=== PATIENT | male | born 1955 | race Caucasian/White ===

== ENCOUNTER 2018-12-12 23:14 | Emergency (ER) | payer MEDICAID, OTHER ==
[~2018-12-12] VITALS: Ht 177.8 cm; Wt 100.0 kg
[~2018-12-12 23:14] MED LIST: NO HOME MEDS
[2018-12-12 23:53] LABS: BASOPHILS # (AUTO) 0.1 X10'3 (0-0.2); BASOPHILS % (AUTO) 0.5 % (0-1); EOSINOPHILS # (AUTO) 0.4 X10'3 (0-0.9); EOSINOPHILS % (AUTO) 3.7 % (0-6); HEMATOCRIT 40.5 % (42.0-52.0); LYMPHOCYTES # (AUTO) 2.4 X10'3 (1.1-4.8); LYMPHOCYTES % (AUTO) 24.1 % (21-51); MEAN CORPUSCULAR HEMOGLOBIN 35.6 PG (27.0-31.0); MEAN CORPUSCULAR HGB CONC 34.5 g/dL (33.0-36.5); MEAN CORPUSCULAR VOLUME 103.2 FL (78-98); MEAN PLATELET VOLUME 8.7 FL (7.4-10.4); MONOCYTES # (AUTO) 1.2 X10'3 (0-0.9); MONOCYTES % (AUTO) 12.2 % (2-12); NEUTROPHILS % (AUTO) 59.5 % (42-75); PLATELET COUNT 214 X10'3 (140-440); RED BLOOD COUNT 3.92 X10'6 (4.70-6.10); RED CELL DISTRIBUTION WIDTH 13.5 % (11.5-14.5)
[2018-12-13 00:08] LABS: ALANINE AMINOTRANSFERASE 104 U/L (12-78); ALBUMIN 2.2 G/DL (3.4-5.0); ALKALINE PHOSPHATASE 92 IU/L (46-116); ANION GAP 7 (8-16); CALCIUM 8.4 MG/DL (8.5-10.1); CHLORIDE 103 MMOL/L (99-107); CREATININE 0.91 MG/DL (0.60-1.10); LIPASE 709 U/L (73-393); POTASSIUM 3.6 MMOL/L (3.5-5.1); SODIUM 135 MMOL/L (135-145); eGFR 84 ML/MIN
[2018-12-13 00:42] LABS: ALBUMIN/GLOBULIN RATIO 0.3 (1.1-1.5); BILIRUBIN,TOTAL 1.3 MG/DL (0.1-1.0); BLOOD UREA NITROGEN 16 MG/DL (7-18); BUN/CREATININE RATIO 17.6 (5.4-32.0); GLUCOSE 150 MG/DL (70-104); TOTAL PROTEIN 9.2 G/DL (6.4-8.2)
[2018-12-13 00:43] LABS: ASPARTATE AMINO TRANSFERASE 139 U/L (10-37)
[2018-12-13] MEDS ORDERED: albumin (human) 25% 100 ML IV solution IV ONE (04:40)
[2018-12-13] MEDS ORDERED: LIDOcaine 1% w/epiNEPHrine 1:200,000 30ml vial IM ONE (05:05)
[2018-12-13 05:08] VITALS: BP 108/75
[2018-12-13 06:56] LABS: GLUCOSE,BODY FLUID 163 MG/DL; TOTAL PROTEIN,BODY FLUID 2.9 G/DL
[2018-12-13 08:36] LABS: BASOPHILS,BODY FLUID 1 %; BF RBC COUNT 30075 /CU MM; BF WBC COUNT 500 /CU MM (0-1000); BFAPPEAR CLOUDY; BFCOLOR RED; BFVOLUME 55 ML; LYMPHOCYTES,BODY FLUID 69 %; MONOCYTES,BODY FLUID 2 %; NEUTROPHILS,BODY FLUID 28 %
[2018-12-13 08:37] LABS: BODY FLUID PH (NON-PLEURAL) 7.5
== END 2018-12-13 06:44 | disposition home or self-care (01) ==
LOC: ER 23:14
DX: R18.8 Other ascites (principal); K74.69 Other cirrhosis of liver; E11.9 Type 2 diabetes mellitus without complications
CPT/HCPCS: 36415; 49083; 80053; 82945; 83690; 83986; 84157; 85025; 85610; 87070; 89051; 96374; 99285; P9047; 96365

== ENCOUNTER 2018-12-17 07:06 | Day surgery (SDC) | payer MEDICAID ==
[~2018-12-17] VITALS: Ht 177.8 cm; Wt 96.9 kg
[2018-12-17] VITALS (11 sets, daily range): BP systolic 90–113; BP diastolic 45–79
[2018-12-17] MEDS ORDERED: METF500T PO (07:31)
[2018-12-17] MEDS ORDERED: normal saline 1000ml 1,000 ML IV PRN (07:40)
[2018-12-17] MEDS ORDERED: albumin 25% 100mL bottle x 1 IV PRN (07:40)
== END 2018-12-17 10:47 | disposition home or self-care (01) ==
LOC: SSTAY O 07:06
PROVIDERS: ATTEND Radiology Vascular & Interventional Radiology
DX: R18.8 Other ascites (principal); K74.69 Other cirrhosis of liver; E11.9 Type 2 diabetes mellitus without complications; Z79.84 Long term (current) use of oral hypoglycemic drugs
CPT/HCPCS: 49083; C1729; J7030; P9047

== ENCOUNTER 2018-12-19 06:41 | Day surgery (SDC) | payer MEDICAID ==
[2018-12-19] VITALS (9 sets, daily range): BP systolic 99–121; BP diastolic 58–69
[~2018-12-19] VITALS: Ht 177.8 cm; Wt 90.6 kg
[~2018-12-19 06:41] MED LIST changes: +METF500T PO; -NO HOME MEDS
[2018-12-19] MEDS ORDERED: normal saline 1000ml 1,000 ML IV PRN (07:00)
[2018-12-19 07:44] LABS: BASOPHILS # (AUTO) 0.1 X10'3 (0-0.2); BASOPHILS % (AUTO) 0.7 % (0-1); EOSINOPHILS # (AUTO) 0.3 X10'3 (0-0.9); EOSINOPHILS % (AUTO) 3.5 % (0-6); HEMOGLOBIN 14.7 g/dl (14.0-17.9); LYMPHOCYTES # (AUTO) 1.4 X10'3 (1.1-4.8); LYMPHOCYTES % (AUTO) 16.6 % (21-51); MEAN CORPUSCULAR HGB CONC 35.1 g/dL (33.0-36.5); MEAN CORPUSCULAR VOLUME 102.5 FL (78-98); MEAN PLATELET VOLUME 8.7 FL (7.4-10.4); MONOCYTES # (AUTO) 1.1 X10'3 (0-0.9); MONOCYTES % (AUTO) 12.9 % (2-12); NEUTROPHILS # (AUTO) 5.4 X10'3 (1.8-7.7); NEUTROPHILS % (AUTO) 66.3 % (42-75); PLATELET COUNT 202 X10'3 (140-440); RED BLOOD COUNT 4.09 X10'6 (4.70-6.10); RED CELL DISTRIBUTION WIDTH 13.6 % (11.5-14.5); WHITE BLOOD COUNT 8.2 X10'3 (4.5-11.0)
[2018-12-19 08:04] LABS: ALBUMIN 2.3 G/DL (3.4-5.0); ANION GAP 5 (8-16); CALCIUM 8.3 MG/DL (8.5-10.1); CHLORIDE 102 MMOL/L (99-107); CREATININE 0.82 MG/DL (0.60-1.10); POTASSIUM 3.8 MMOL/L (3.5-5.1); SODIUM 134 MMOL/L (135-145); TOTAL CARBON DIOXIDE 27.3 MMOL/L (24-32); eGFR > 90 ML/MIN
[2018-12-19 08:06] LABS: BLOOD UREA NITROGEN 16 MG/DL (7-18); BUN/CREATININE RATIO 19.5 (5.4-32.0); GLUCOSE 191 MG/DL (70-104)
[2018-12-19] MEDS ORDERED: fentaNYL/PF 50MCG/1 ML 2ML syringe IV PRN (08:15)
[2018-12-19] MEDS ORDERED: LIDOcaine 1% (10mg/ml) 2ml vial SQ ONE (08:15)
[2018-12-19] MEDS ORDERED: midazolam 2 mg/2 ml injection IV PRN (08:15)
[2018-12-19] MEDS ORDERED: midazolam 2 mg/2 ml injection ONE (08:21)
[2018-12-19] MEDS ORDERED: LIDOcaine 1%/PF 5ML 10 MG/ML VIAL ONE (08:21)
[2018-12-19] MEDS ORDERED: heparin 1,000 UNITS/NS 500ml 500 ML ONE (08:22)
[2018-12-19] MEDS ORDERED: iohexol 300mg/ml 100ml inj. ONE (08:22)
[2018-12-19] MEDS ORDERED: fentaNYL/PF 50MCG/1 ML 2ML syringe ONE (08:22)
[2018-12-19] MEDS ORDERED: normal saline 1000ml 1,000 ML IV SCH (11:29)
== END 2018-12-19 12:20 | disposition home or self-care (01) ==
LOC: SSTAY O 06:41
PROVIDERS: ATTEND Radiology Vascular & Interventional Radiology
DX: K74.69 Other cirrhosis of liver (principal)
CPT/HCPCS: 36415; 37200; 75970; 76937; 80048; 85025; 85610; 99152; 99153; C1769; C1894; C2625; J1644; J2250; J3010; J7030; Q9967

== ENCOUNTER 2018-12-27 07:47 | Day surgery (SDC) | payer MEDICAID ==
[~2018-12-27] VITALS: Ht 177.8 cm; Wt 97.7 kg
[2018-12-27 08:00] VITALS: BP 135/76
[2018-12-27] MEDS ORDERED: normal saline 1000ml 1,000 ML IV PRN (08:10)
[2018-12-27 08:20] VITALS: BP 135/76
[2018-12-27 08:30] VITALS: BP 131/75
[2018-12-27 08:40] VITALS: BP 135/79
[2018-12-27] MEDS: albumin 25% 100mL bottle x 1 IV PRN ×2 (08:46→10:32)
[2018-12-27 08:50] VITALS: BP 107/71
[2018-12-27 10:00] VITALS: BP 101/66
== END 2018-12-27 11:02 | disposition home or self-care (01) ==
LOC: SSTAY O 07:47
PROVIDERS: ATTEND Radiology Diagnostic Radiology
DX: R18.8 Other ascites (principal); E11.9 Type 2 diabetes mellitus without complications; Z79.84 Long term (current) use of oral hypoglycemic drugs
CPT/HCPCS: 49083; C1729; J7030; P9047

== ENCOUNTER 2019-01-07 07:55 | Day surgery (SDC) | payer MEDICAID ==
[2019-01-07] VITALS (7 sets, daily range): BP systolic 107–121; BP diastolic 60–82
[~2019-01-07] VITALS: Ht 177.8 cm; Wt 96.0 kg
[2019-01-07] MEDS ORDERED: NAPR220T67 PO (08:24)
[2019-01-07] MEDS ORDERED: normal saline 1000ml 1,000 ML IV PRN (08:30)
[2019-01-07] MEDS: albumin 25% 100mL bottle x 1 IV PRN ×2 (09:03→09:26)
== END 2019-01-07 10:05 | disposition home or self-care (01) ==
LOC: SSTAY O 07:55
PROVIDERS: ATTEND Radiology Diagnostic Radiology
DX: R18.8 Other ascites (principal); E11.9 Type 2 diabetes mellitus without complications; K74.60 Unspecified cirrhosis of liver; Z79.84 Long term (current) use of oral hypoglycemic drugs
CPT/HCPCS: 49083; C1729; J7030; P9047

== ENCOUNTER 2019-01-14 08:31 | Day surgery (SDC) | payer MEDICAID ==
[~2019-01-14] VITALS: Ht 175.3 cm; Wt 94.3 kg
[~2019-01-14 08:31] MED LIST changes: +NAPR220T67 PO
[2019-01-14] MEDS ORDERED: albumin 25% 100mL bottle x 1 IV PRN (08:50)
[2019-01-14] MEDS ORDERED: normal saline 1000ml 1,000 ML IV PRN (08:50)
[2019-01-14 09:05] VITALS: BP 109/71
[2019-01-14 09:45] VITALS: BP 106/63
[2019-01-14 10:00] VITALS: BP 103/70
[2019-01-14 10:15] VITALS: BP 89/67
[2019-01-14 10:30] VITALS: BP 74/48
[2019-01-14 10:45] VITALS: BP 95/54
== END 2019-01-14 11:45 | disposition home or self-care (01) ==
LOC: SSTAY O 08:31
PROVIDERS: ATTEND Radiology Vascular & Interventional Radiology
DX: R18.8 Other ascites (principal)
CPT/HCPCS: 49083; C1729; J7030; P9047

== ENCOUNTER 2019-01-24 08:09 | Day surgery (SDC) | payer MEDICAID ==
[~2019-01-24] VITALS: Ht 177.8 cm; Wt 100.2 kg
[2019-01-24] VITALS (12 sets, daily range): BP systolic 91–128; BP diastolic 44–90
[2019-01-24] MEDS ORDERED: normal saline 1000ml 1,000 ML IV PRN (08:20)
[2019-01-24] MEDS ORDERED: SPIR25TA5 PO (08:29)
[2019-01-24] MEDS: albumin 25% 100mL bottle x 1 IV PRN ×2 (10:51→10:52)
== END 2019-01-24 12:05 | disposition home or self-care (01) ==
LOC: SSTAY O 08:09
PROVIDERS: ATTEND Radiology Vascular & Interventional Radiology
DX: R18.8 Other ascites (principal); K74.60 Unspecified cirrhosis of liver
CPT/HCPCS: 49083; C1729; J7030; P9047

== ENCOUNTER → 2019-01-31 | Day surgery (SDC) | payer MEDICAID ==
[~2019-01-31] VITALS: Ht 177.8 cm; Wt 96.7 kg
[~2019-01-31] MED LIST changes: +DAPA1TAB4; +SPIR25TA5 PO; +albumin 25% 100mL bottle x 1 IV PRN
[2019-01-31 08:12] VITALS: BP 110/78
[2019-01-31 08:30] VITALS: BP 121/78
[2019-01-31 08:45] VITALS: BP 119/79
[2019-01-31 09:00] VITALS: BP 116/72
[2019-01-31 09:15] VITALS: BP 106/65
[2019-01-31 09:30] VITALS: BP 110/65
== END | disposition home or self-care (01) ==
LOC: SSTAY O 07:30
PROVIDERS: ATTEND Radiology Diagnostic Radiology
DX: R18.8 Other ascites (principal); K74.60 Unspecified cirrhosis of liver; E11.9 Type 2 diabetes mellitus without complications; Z79.84 Long term (current) use of oral hypoglycemic drugs; Z79.899 Other long term (current) drug therapy
CPT/HCPCS: 49083; C1729; P9047

== ENCOUNTER 2019-02-07 06:54 | Day surgery (SDC) | payer MEDICAID ==
[2019-02-07] VITALS (7 sets, daily range): BP systolic 103–120; BP diastolic 68–82
[~2019-02-07] VITALS: Ht 177.8 cm; Wt 95.6 kg
[~2019-02-07 06:54] MED LIST changes: -DAPA1TAB4; -albumin 25% 100mL bottle x 1 IV PRN
[2019-02-07] MEDS ORDERED: LIDOcaine 1% 30ml preserv. free vial SQ ONE (07:15)
[2019-02-07] MEDS ORDERED: albumin 25% 100mL bottle x 1 IV PRN (07:20)
[2019-02-07] MEDS ORDERED: normal saline 1000ml 1,000 ML IV PRN (07:20)
== END 2019-02-07 10:22 | disposition home or self-care (01) ==
LOC: SSTAY O 06:54
PROVIDERS: ATTEND Radiology Vascular & Interventional Radiology
DX: R18.8 Other ascites (principal); K74.69 Other cirrhosis of liver; E11.9 Type 2 diabetes mellitus without complications; Z79.84 Long term (current) use of oral hypoglycemic drugs
CPT/HCPCS: 49083; 82948; C1729; J7030; P9047

== ENCOUNTER 2019-02-14 07:06 | Day surgery (SDC) | payer MEDICAID ==
[~2019-02-14] VITALS: Ht 177.8 cm; Wt 99.2 kg
[2019-02-14] VITALS (8 sets, daily range): BP systolic 100–124; BP diastolic 62–82
[2019-02-14] MEDS ORDERED: normal saline 1000ml 1,000 ML IV PRN (07:20)
[2019-02-14] MEDS: albumin 25% 100mL bottle x 1 IV PRN ×2 (09:46→10:23)
== END 2019-02-14 11:10 | disposition home or self-care (01) ==
LOC: SSTAY O 07:06
PROVIDERS: ATTEND Radiology Diagnostic Radiology
DX: R18.8 Other ascites (principal); K74.60 Unspecified cirrhosis of liver; E11.9 Type 2 diabetes mellitus without complications; Z79.84 Long term (current) use of oral hypoglycemic drugs
CPT/HCPCS: 49083; C1729; J7030; P9047

== ENCOUNTER 2019-02-20 07:22 | Day surgery (SDC) | payer MEDICAID ==
[2019-02-20] VITALS (8 sets, daily range): BP systolic 96–134; BP diastolic 58–71
[~2019-02-20] VITALS: Ht 177.8 cm; Wt 97.3 kg
[2019-02-20] MEDS ORDERED: normal saline 1000ml 1,000 ML IV PRN (07:50)
[2019-02-20] MEDS: albumin 25% 100mL bottle x 1 IV PRN ×2 (09:01→09:23)
== END 2019-02-20 10:10 | disposition home or self-care (01) ==
LOC: SSTAY O 07:22
PROVIDERS: ATTEND Radiology Diagnostic Radiology
DX: R18.8 Other ascites (principal); E11.9 Type 2 diabetes mellitus without complications; K74.69 Other cirrhosis of liver; Z79.84 Long term (current) use of oral hypoglycemic drugs
CPT/HCPCS: 49083; 82948; C1729; J7030; P9047

== ENCOUNTER 2019-02-26 07:07 | Day surgery (SDC) | payer MEDICAID ==
[~2019-02-26] VITALS: Ht 177.8 cm; Wt 96.8 kg
[2019-02-26] VITALS (10 sets, daily range): BP systolic 102–137; BP diastolic 64–82
[2019-02-26] MEDS ORDERED: DAPA1TAB4 (07:33)
[2019-02-26] MEDS ORDERED: normal saline 1000ml 1,000 ML IV PRN (07:35)
[2019-02-26] MEDS: albumin 25% 100mL bottle x 1 IV PRN ×2 (09:07→09:11)
== END 2019-02-26 09:45 | disposition home or self-care (01) ==
LOC: SSTAY O 07:07
PROVIDERS: ATTEND Radiology Diagnostic Radiology
DX: R18.8 Other ascites (principal); K74.60 Unspecified cirrhosis of liver; E11.9 Type 2 diabetes mellitus without complications; Z79.84 Long term (current) use of oral hypoglycemic drugs; Z79.899 Other long term (current) drug therapy
CPT/HCPCS: 49083; C1729; J7030; P9047

== ENCOUNTER 2019-03-04 06:42 | Day surgery (SDC) | payer MEDICAID ==
[2019-03-04] VITALS (9 sets, daily range): BP systolic 94–137; BP diastolic 58–87
[~2019-03-04] VITALS: Ht 177.8 cm; Wt 98.6 kg
[~2019-03-04 06:42] MED LIST changes: +DAPA1TAB4; -METF500T PO
[2019-03-04] MEDS ORDERED: normal saline 1000ml 1,000 ML IV PRN (07:00)
[2019-03-04] MEDS: albumin 25% 100mL bottle x 1 IV PRN ×2 (09:23→09:53)
--- NOTE | 2019-03-04 12:23 | NUR ---
correction made on 0902 HR and 1000 HR. HR was not 16 as previously charted. HR corrected in intra and post chart notes.
== END 2019-03-04 10:40 | disposition home or self-care (01) ==
LOC: SSTAY O 06:42
PROVIDERS: ATTEND Radiology Diagnostic Radiology
DX: R18.8 Other ascites (principal)
CPT/HCPCS: 49083; C1729; J7030; P9047

== ENCOUNTER 2019-03-11 06:31 | Day surgery (SDC) | payer MEDICAID ==
[~2019-03-11] VITALS: Ht 177.8 cm; Wt 99.6 kg
[2019-03-11 06:44] VITALS: BP 119/76
[2019-03-11] MEDS ORDERED: normal saline 1000ml 1,000 ML IV PRN (06:55)
[2019-03-11 08:30] VITALS: BP 115/74
[2019-03-11] MEDS: albumin 25% 100mL bottle x 1 IV PRN ×2 (08:41→09:14)
[2019-03-11 08:45] VITALS: BP 102/59
[2019-03-11 09:00] VITALS: BP 115/63
[2019-03-11 09:15] VITALS: BP 103/66
[2019-03-11 09:30] VITALS: BP 98/64
== END 2019-03-11 09:30 | disposition home or self-care (01) ==
LOC: SSTAY O 06:31
PROVIDERS: ATTEND Radiology Diagnostic Radiology
DX: R18.8 Other ascites (principal); K74.69 Other cirrhosis of liver; E11.9 Type 2 diabetes mellitus without complications; Z79.84 Long term (current) use of oral hypoglycemic drugs
CPT/HCPCS: 49083; C1729; J7030; P9047

== ENCOUNTER 2019-03-17 06:43 | Day surgery (SDC) | payer MEDICAID ==
[2019-03-17] VITALS (9 sets, daily range): BP systolic 92–122; BP diastolic 61–84
[~2019-03-17] VITALS: Ht 177.8 cm; Wt 99.6 kg
[2019-03-17] MEDS ORDERED: normal saline 1000ml 1,000 ML IV PRN (07:15)
[2019-03-17] MEDS: albumin 25% 100mL bottle x 1 IV PRN ×3 (08:39→09:35)
== END 2019-03-17 10:20 | disposition home or self-care (01) ==
LOC: SSTAY O 06:43
PROVIDERS: ATTEND Radiology Diagnostic Radiology
DX: R18.8 Other ascites (principal); K74.60 Unspecified cirrhosis of liver; E11.9 Type 2 diabetes mellitus without complications; Z79.84 Long term (current) use of oral hypoglycemic drugs
CPT/HCPCS: 49083; C1729; J7030; P9047

== ENCOUNTER 2019-03-24 06:48 | Day surgery (SDC) | payer MEDICAID ==
[~2019-03-24] VITALS: Ht 177.8 cm; Wt 99.7 kg
[2019-03-24] VITALS (10 sets, daily range): BP systolic 92–117; BP diastolic 52–76
[~2019-03-24 06:48] MED LIST changes: -SPIR25TA5 PO
[2019-03-24] MEDS ORDERED: normal saline 1000ml 1,000 ML IV PRN (07:15)
[2019-03-24] MEDS ORDERED: AZAT50TA PO (08:38)
[2019-03-24] MEDS: albumin 25% 100mL bottle x 1 IV PRN ×3 (08:57→09:56)
== END 2019-03-24 10:45 | disposition home or self-care (01) ==
LOC: SSTAY O 06:48
PROVIDERS: ATTEND Radiology Vascular & Interventional Radiology
DX: R18.8 Other ascites (principal); K74.60 Unspecified cirrhosis of liver; E11.9 Type 2 diabetes mellitus without complications; Z79.84 Long term (current) use of oral hypoglycemic drugs
CPT/HCPCS: 49083; C1729; J7030; P9047

== ENCOUNTER 2019-03-29 12:49 | Emergency (ER) | payer MEDICAID ==
[~2019-03-29] VITALS: Ht 177.8 cm; Wt 98.0 kg
[~2019-03-29 12:49] MED LIST changes: +AZAT50TA PO; -NAPR220T67 PO
[2019-03-29 14:54] LABS: BASOPHILS # (AUTO) 0.1 X10'3 (0-0.2); BASOPHILS % (AUTO) 0.8 % (0-1); EOSINOPHILS # (AUTO) 0.3 X10'3 (0-0.9); EOSINOPHILS % (AUTO) 3.5 % (0-6); HEMATOCRIT 38.8 % (42.0-52.0); HEMOGLOBIN 13.6 g/dl (14.0-17.9); LYMPHOCYTES # (AUTO) 1.2 X10'3 (1.1-4.8); LYMPHOCYTES % (AUTO) 13.5 % (21-51); MEAN CORPUSCULAR HEMOGLOBIN 34.9 PG (27.0-31.0); MEAN CORPUSCULAR HGB CONC 35.1 g/dL (33.0-36.5); MEAN CORPUSCULAR VOLUME 99.4 FL (78-98); MEAN PLATELET VOLUME 7.8 FL (7.4-10.4); MONOCYTES # (AUTO) 1.1 X10'3 (0-0.9); MONOCYTES % (AUTO) 12.4 % (2-12); NEUTROPHILS # (AUTO) 6.3 X10'3 (1.8-7.7); NEUTROPHILS % (AUTO) 69.8 % (42-75); PLATELET COUNT 220 X10'3 (140-440); RED BLOOD COUNT 3.91 X10'6 (4.70-6.10); RED CELL DISTRIBUTION WIDTH 13.2 % (11.5-14.5)
[2019-03-29 15:09] LABS: PARTIAL THROMBOPLASTIN TIME 28 SECONDS (22-32)
[2019-03-29 15:11] LABS: ALANINE AMINOTRANSFERASE 36 U/L (12-78); ALBUMIN 2.4 G/DL (3.4-5.0); ALBUMIN/GLOBULIN RATIO 0.4 (1.1-1.5); ALKALINE PHOSPHATASE 102 IU/L (46-116); ANION GAP 4 (8-16); ASPARTATE AMINO TRANSFERASE 67 U/L (10-37); BILIRUBIN,TOTAL 0.8 MG/DL (0.1-1.0); BLOOD UREA NITROGEN 33 MG/DL (7-18); BUN/CREATININE RATIO 22.9 (5.4-32.0); CALCIUM 8.4 MG/DL (8.5-10.1); CHLORIDE 105 MMOL/L (99-107); CREATININE 1.44 MG/DL (0.60-1.10); GLUCOSE 182 MG/DL (70-104); POTASSIUM 4.5 MMOL/L (3.5-5.1); SODIUM 134 MMOL/L (135-145); TOTAL CARBON DIOXIDE 25.5 MMOL/L (24-32); TOTAL PROTEIN 8.6 G/DL (6.4-8.2); eGFR 49 ML/MIN
[2019-03-29] MEDS ORDERED: albumin (Human) 5% 250ml 250 ML IV ONE ×2 (15:45→16:20)
[2019-03-29 17:54] VITALS: BP 103/68
== END 2019-03-29 18:55 | disposition home or self-care (01) ==
LOC: ER 12:49
DX: R18.8 Other ascites (principal); E11.9 Type 2 diabetes mellitus without complications; Z79.899 Other long term (current) drug therapy
CPT/HCPCS: 36415; 49082; 80053; 85025; 85610; 85730; 99285; P9045

== ENCOUNTER 2019-04-01 07:22 | Day surgery (SDC) | payer MEDICAID ==
[~2019-04-01] VITALS: Ht 177.8 cm; Wt 93.5 kg
[2019-04-01] VITALS (8 sets, daily range): BP systolic 96–131; BP diastolic 28–84
[2019-04-01] MEDS ORDERED: normal saline 1000ml 1,000 ML IV PRN ×2 (07:50→10:35)
[2019-04-01] MEDS ORDERED: albumin 25% 100mL bottle x 1 IV PRN (10:35)
== END 2019-04-01 11:20 | disposition home or self-care (01) ==
LOC: SSTAY O 07:22
PROVIDERS: ATTEND Radiology Vascular & Interventional Radiology
DX: R18.8 Other ascites (principal); K74.60 Unspecified cirrhosis of liver; E11.9 Type 2 diabetes mellitus without complications; Z79.84 Long term (current) use of oral hypoglycemic drugs; Z98.890 Other specified postprocedural states
CPT/HCPCS: 49083; C1729; J7030; P9047

== ENCOUNTER 2019-04-09 07:41 | Day surgery (SDC) | payer MEDICAID ==
[~2019-04-09] VITALS: Ht 177.8 cm; Wt 97.4 kg
[2019-04-09] MEDS ORDERED: LACT10SO57 PO (08:03)
[2019-04-09] MEDS ORDERED: CIPR-20 PO (08:04)
[2019-04-09 08:06] VITALS: BP 102/66
[2019-04-09] MEDS ORDERED: albumin 25% 100mL bottle x 1 IV PRN (08:25)
[2019-04-09] MEDS ORDERED: normal saline 1000ml 1,000 ML IV PRN (08:25)
[2019-04-09 09:12] VITALS: BP 103/62
[2019-04-09 09:15] VITALS: BP 110/60
[2019-04-09 09:30] VITALS: BP 97/58
[2019-04-09 09:45] VITALS: BP 103/59
== END 2019-04-09 11:20 | disposition home or self-care (01) ==
LOC: SSTAY O 07:41
PROVIDERS: ATTEND Radiology Vascular & Interventional Radiology
DX: R18.8 Other ascites (principal); K74.69 Other cirrhosis of liver; E11.9 Type 2 diabetes mellitus without complications; Z79.899 Other long term (current) drug therapy; Z79.84 Long term (current) use of oral hypoglycemic drugs
CPT/HCPCS: 49083; C1729; J7030; P9047

== ENCOUNTER 2019-04-16 06:35 | Day surgery (SDC) | payer MEDICAID ==
[2019-04-16] VITALS (7 sets, daily range): BP systolic 90–103; BP diastolic 50–66
[~2019-04-16] VITALS: Ht 177.8 cm; Wt 101.0 kg
[~2019-04-16 06:35] MED LIST changes: -AZAT50TA PO; +CIPR-20 PO; +LACT10SO57 PO
[2019-04-16] MEDS ORDERED: CIPROFLOXACIN PO (06:50)
[2019-04-16] MEDS ORDERED: albumin 25% 100mL bottle x 1 IV PRN (06:50)
[2019-04-16] MEDS ORDERED: normal saline 1000ml 1,000 ML IV PRN (06:50)
== END 2019-04-16 09:40 | disposition home or self-care (01) ==
LOC: SSTAY O 06:35
PROVIDERS: ATTEND Radiology Diagnostic Radiology
DX: R18.8 Other ascites (principal); K74.60 Unspecified cirrhosis of liver; I25.10 Atherosclerotic heart disease of native coronary artery without angina pectoris; M19.90 Unspecified osteoarthritis, unspecified site; E11.22 Type 2 diabetes mellitus with diabetic chronic kidney disease; I12.0 Hypertensive chronic kidney disease with stage 5 chronic kidney disease or end stage renal disease; N18.6 End stage renal disease; Z79.899 Other long term (current) drug therapy; Z87.891 Personal history of nicotine dependence; Z79.84 Long term (current) use of oral hypoglycemic drugs; Z72.89 Other problems related to lifestyle; Z91.041 Radiographic dye allergy status; Z91.040 Latex allergy status; Z88.8 Allergy status to other drugs, medicaments and biological substances; Z82.49 Family history of ischemic heart disease and other diseases of the circulatory system
CPT/HCPCS: 49083; C1729; P9047

== ENCOUNTER 2019-04-25 07:23 | Day surgery (SDC) | payer MEDICAID ==
[2019-04-25] VITALS (7 sets, daily range): BP systolic 90–120; BP diastolic 55–72
[~2019-04-25] VITALS: Ht 177.8 cm; Wt 112.9 kg
[~2019-04-25 07:23] MED LIST changes: -CIPR-20 PO
[2019-04-25] MEDS ORDERED: albumin 25% 100mL bottle x 1 IV PRN (07:40)
[2019-04-25] MEDS ORDERED: normal saline 1000ml 1,000 ML IV PRN (07:45)
== END 2019-04-25 10:30 | disposition home or self-care (01) ==
LOC: SSTAY O 07:23
PROVIDERS: ATTEND Radiology Vascular & Interventional Radiology
DX: R18.8 Other ascites (principal); K74.60 Unspecified cirrhosis of liver; E11.9 Type 2 diabetes mellitus without complications; Z79.84 Long term (current) use of oral hypoglycemic drugs; Z79.899 Other long term (current) drug therapy
CPT/HCPCS: 49083; C1729; J7030; P9047

== ENCOUNTER 2019-05-05 17:48 | Emergency (ER) | payer MEDICAID ==
[~2019-05-05] VITALS: Ht 172.7 cm; Wt 80.0 kg
[2019-05-05 18:10] VITALS: BP 143/74
--- NOTE | 2019-05-05 18:17 | NUR ---
BS 130
== END 2019-05-05 19:43 | disposition left against medical advice (07) ==
LOC: ER 17:48
DX: R53.1 Weakness (principal); R10.9 Unspecified abdominal pain; R19.7 Diarrhea, unspecified; Z53.21 Procedure and treatment not carried out due to patient leaving prior to being seen by health care provider
CPT/HCPCS: 82948

== ENCOUNTER 2019-05-06 13:21 | Emergency (ER) | payer MEDICAID ==
[~2019-05-06] VITALS: Ht 172.7 cm; Wt 106.8 kg
[2019-05-06] MEDS ORDERED: normal saline 1000ML IV soln IVB ONE (15:40)
[2019-05-06 16:01] LABS: BASOPHILS % (AUTO) 0.7 % (0-1); EOSINOPHILS # (AUTO) 0.2 X10'3 (0-0.9); EOSINOPHILS % (AUTO) 2.9 % (0-6); HEMATOCRIT 34.7 % (42.0-52.0); HEMOGLOBIN 12.4 g/dl (14.0-17.9); LYMPHOCYTES % (AUTO) 18.3 % (21-51); MEAN CORPUSCULAR HEMOGLOBIN 34.9 PG (27.0-31.0); MEAN CORPUSCULAR HGB CONC 35.6 g/dL (33.0-36.5); MEAN PLATELET VOLUME 7.7 FL (7.4-10.4); MONOCYTES # (AUTO) 0.7 X10'3 (0-0.9); NEUTROPHILS # (AUTO) 3.5 X10'3 (1.8-7.7); NEUTROPHILS % (AUTO) 65.1 % (42-75); PLATELET COUNT 175 X10'3 (140-440); RED BLOOD COUNT 3.55 X10'6 (4.70-6.10); RED CELL DISTRIBUTION WIDTH 14.4 % (11.5-14.5); WHITE BLOOD COUNT 5.4 X10'3 (4.5-11.0)
[2019-05-06 16:20] LABS: ALANINE AMINOTRANSFERASE 32 U/L (12-78); ALBUMIN 2.1 G/DL (3.4-5.0); ALKALINE PHOSPHATASE 82 IU/L (46-116); ANION GAP 7 (8-16); CALCIUM 8.2 MG/DL (8.5-10.1); CHLORIDE 109 MMOL/L (99-107); CREATININE 1.16 MG/DL (0.60-1.10); POTASSIUM 3.6 MMOL/L (3.5-5.1); SODIUM 139 MMOL/L (135-145); TOTAL CARBON DIOXIDE 22.6 MMOL/L (24-32); eGFR 63 ML/MIN
[2019-05-06 16:21] LABS: ALBUMIN/GLOBULIN RATIO 0.3 (1.1-1.5); ASPARTATE AMINO TRANSFERASE 66 U/L (10-37); BILIRUBIN,TOTAL 1.5 MG/DL (0.1-1.0); BLOOD UREA NITROGEN 21 MG/DL (7-18); BUN/CREATININE RATIO 18.1 (5.4-32.0); GLUCOSE 120 MG/DL (70-104); TOTAL PROTEIN 8.4 G/DL (6.4-8.2)
[2019-05-06 16:23] LABS: LACTIC SEPSIS 1.9 MMOL/L (0.4-2.0)
[2019-05-06] MEDS ORDERED: lactulose 20gm/30ml cup PO ONE (16:50)
[2019-05-06 16:59] LABS: CLARITY,URINE SLIGHTLY CLOUDY (Clear); COLOR,URINE YELLOW (Yellow); GLUCOSE, URINE 500 mg/dl (Neg); KETONES,URINE TRACE mg/dl (Neg); LEUKOCYTE ESTERASE ,URINE NEGATIVE (Neg); NITRITES, URINE NEGATIVE (Neg); OCCULT BLOOD,URINE NEGATIVE (Neg); PH,URINE 5.5 (4.8-8.0); PROTEIN,URINE NEGATIVE (Neg); UA COLLECTION TYPE URINAL; UROBILINOGEN,URINE 0.2 E.U/dL (0.2-1.0)
[2019-05-06 17:04] LABS: MUCUS STRANDS MANY /LPF (Neg); SQUAMOUS EPITHELIAL CELL,UR MANY /LPF (FEW)
[2019-05-06 17:05] LABS: HYALINE CASTS 0-3 /LPF (NEGATIVE); TRANSITIONAL EPI CELLS,URINE FEW /HPF
[2019-05-06 17:06] LABS: BACTERIA,URINE NONE SEEN /HPF (Neg); RBC,URINE 0-2 /HPF (0-2); WBC,URINE 0-4 /HPF (0-4)
[2019-05-06 17:38] VITALS: BP 138/83
== END 2019-05-06 17:48 | disposition home or self-care (01) ==
LOC: ER 13:21
DX: K74.60 Unspecified cirrhosis of liver (principal); K72.90 Hepatic failure, unspecified without coma; R41.82 Altered mental status, unspecified; R41.0 Disorientation, unspecified; E11.9 Type 2 diabetes mellitus without complications; Z79.899 Other long term (current) drug therapy
CPT/HCPCS: 36415; 71045; 80053; 81001; 82140; 83605; 85025; 85610; 87040; 93005; 96360; 96361; 99284; J7030

== ENCOUNTER 2019-05-07 00:59 | Emergency (ER) | payer MEDICAID ==
[~2019-05-07] VITALS: Ht 177.8 cm; Wt 108.0 kg
[2019-05-07 02:16] LABS: PARTIAL THROMBOPLASTIN TIME 29 SECONDS (22-32)
[2019-05-07 02:17] LABS: BASOPHILS % (AUTO) 0.8 % (0-1); EOSINOPHILS # (AUTO) 0.2 X10'3 (0-0.9); EOSINOPHILS % (AUTO) 3.3 % (0-6); HEMATOCRIT 32.2 % (42.0-52.0); HEMOGLOBIN 11.6 g/dl (14.0-17.9); MEAN CORPUSCULAR HEMOGLOBIN 34.8 PG (27.0-31.0); MEAN CORPUSCULAR VOLUME 96.5 FL (78-98); MEAN PLATELET VOLUME 7.7 FL (7.4-10.4); MONOCYTES # (AUTO) 0.9 X10'3 (0-0.9); MONOCYTES % (AUTO) 16.3 % (2-12); NEUTROPHILS # (AUTO) 3.2 X10'3 (1.8-7.7); NEUTROPHILS % (AUTO) 61.6 % (42-75); PLATELET COUNT 175 X10'3 (140-440); RED BLOOD COUNT 3.33 X10'6 (4.70-6.10); RED CELL DISTRIBUTION WIDTH 14.3 % (11.5-14.5); WHITE BLOOD COUNT 5.3 X10'3 (4.5-11.0)
[2019-05-07 02:18] LABS: ALANINE AMINOTRANSFERASE 32 U/L (12-78); ALBUMIN 1.9 G/DL (3.4-5.0); ALKALINE PHOSPHATASE 80 IU/L (46-116); ANION GAP 5 (8-16); CALCIUM 7.7 MG/DL (8.5-10.1); CHLORIDE 110 MMOL/L (99-107); CREATININE 1.32 MG/DL (0.60-1.10); POTASSIUM 3.5 MMOL/L (3.5-5.1); SODIUM 139 MMOL/L (135-145); TOTAL CARBON DIOXIDE 23.8 MMOL/L (24-32); eGFR 55 ML/MIN
[2019-05-07 02:30] LABS: ASPARTATE AMINO TRANSFERASE 73 U/L (10-37)
[2019-05-07 02:31] LABS: ALBUMIN/GLOBULIN RATIO 0.3 (1.1-1.5); BILIRUBIN,TOTAL 1.1 MG/DL (0.1-1.0); BLOOD UREA NITROGEN 18 MG/DL (7-18); BUN/CREATININE RATIO 13.6 (5.4-32.0); GLUCOSE 163 MG/DL (70-104); TOTAL PROTEIN 7.4 G/DL (6.4-8.2)
[2019-05-07 02:56] LABS: PLATELET ESTIMATE NORMAL; TOTAL CELLS COUNTED 100
[2019-05-07] MEDS ORDERED: lactulose 20gm/30ml cup PO ONE (04:20)
[2019-05-07 04:36] VITALS: BP 112/59
== END 2019-05-07 04:48 | disposition home or self-care (01) ==
LOC: ER 01:00
DX: R18.8 Other ascites (principal); E11.9 Type 2 diabetes mellitus without complications; Z79.899 Other long term (current) drug therapy
CPT/HCPCS: 36415; 49083; 80053; 82140; 85025; 85610; 85730; 99285

== ENCOUNTER 2019-05-12 06:32 | Day surgery (SDC) | payer MEDICAID ==
[~2019-05-12] VITALS: Ht 172.7 cm; Wt 102.1 kg
[2019-05-12] MEDS ORDERED: albumin 25% 100mL bottle x 1 IV PRN (06:45)
[2019-05-12] MEDS ORDERED: normal saline 1000ml 1,000 ML IV PRN (06:50)
[2019-05-12 06:54] VITALS: BP 135/75
[2019-05-12 09:20] VITALS: BP 116/68
[2019-05-12 09:35] VITALS: BP 127/77
[2019-05-12 09:50] VITALS: BP 123/65
== END 2019-05-12 09:55 | disposition home or self-care (01) ==
LOC: SSTAY O 06:32
PROVIDERS: ATTEND Radiology Diagnostic Radiology
DX: R18.8 Other ascites (principal); K74.69 Other cirrhosis of liver; E11.9 Type 2 diabetes mellitus without complications; Z79.84 Long term (current) use of oral hypoglycemic drugs
CPT/HCPCS: 49083; 82948; C1729; J7030; P9047

== ENCOUNTER 2019-05-19 00:45 | Emergency (ER) | payer MEDICAID ==
[~2019-05-19] VITALS: Ht 172.7 cm; Wt 80.2 kg
[2019-05-19 00:52] VITALS: BP 131/75
[2019-05-19] MEDS ORDERED: meclizine 12.5mg tablet PO ONE (02:10)
[2019-05-19] MEDS ORDERED: MECL-111 PO (02:10)
[2019-05-19] MEDS ORDERED: ONDA4TAB6 PO (02:10)
== END 2019-05-19 02:42 | disposition home or self-care (01) ==
LOC: ER 00:46
DX: R42 Dizziness and giddiness (principal); E11.9 Type 2 diabetes mellitus without complications; Z98.890 Other specified postprocedural states; Z79.899 Other long term (current) drug therapy
CPT/HCPCS: 82948; 99283; J8597

== ENCOUNTER 2019-05-20 06:22 | Day surgery (SDC) | payer MEDICAID ==
[~2019-05-20] VITALS: Ht 172.7 cm; Wt 98.7 kg
[2019-05-20] VITALS (8 sets, daily range): BP systolic 105–122; BP diastolic 65–74
[~2019-05-20 06:22] MED LIST changes: +MECL-111 PO; +ONDA4TAB6 PO
[2019-05-20] MEDS ORDERED: albumin 25% 100mL bottle x 1 IV PRN (06:40)
[2019-05-20] MEDS ORDERED: normal saline 1000ml 1,000 ML IV PRN (06:40)
[2019-05-21] MEDS ORDERED: MYCO250C46 PO (12:00)
[2019-05-21] MEDS ORDERED: PANT-47 PO (12:00)
[2019-05-21] MEDS ORDERED: SPIR25TA5 PO (12:00)
== END 2019-05-20 09:45 | disposition home or self-care (01) ==
LOC: SSTAY O 06:22
PROVIDERS: ATTEND Radiology Vascular & Interventional Radiology
DX: R18.8 Other ascites (principal); Z79.899 Other long term (current) drug therapy
CPT/HCPCS: 49083; 76937; C1729; J7030; P9047

== ENCOUNTER 2019-05-21 10:33 | Inpatient (IN) | payer MEDICAID ==
[~2019-05-21] VITALS: Ht 172.7 cm; Wt 93.0 kg
[~2019-05-21 10:33] MED LIST changes: -MECL-111 PO; -ONDA4TAB6 PO
[2019-05-21] MEDS ORDERED: ondansetron/PF 4mg/2ml inj IV ONE (11:45)
[2019-05-21] MEDS ORDERED: lactulose 20gm/30ml cup PO ONE (11:45)
[2019-05-21 11:46] LABS: BASOPHILS % (AUTO) 0.5 % (0-1); EOSINOPHILS % (AUTO) 0.3 % (0-6); HEMATOCRIT 38.5 % (42.0-52.0); HEMOGLOBIN 13.6 g/dl (14.0-17.9); LYMPHOCYTES # (AUTO) 0.8 X10'3 (1.1-4.8); MEAN CORPUSCULAR HEMOGLOBIN 33.9 PG (27.0-31.0); MEAN CORPUSCULAR HGB CONC 35.4 g/dL (33.0-36.5); MEAN CORPUSCULAR VOLUME 95.7 FL (78-98); MEAN PLATELET VOLUME 7.8 FL (7.4-10.4); MONOCYTES # (AUTO) 0.5 X10'3 (0-0.9); MONOCYTES % (AUTO) 6.8 % (2-12); NEUTROPHILS # (AUTO) 6.1 X10'3 (1.8-7.7); NEUTROPHILS % (AUTO) 81.4 % (42-75); PLATELET COUNT 169 X10'3 (140-440); RED BLOOD COUNT 4.03 X10'6 (4.70-6.10); RED CELL DISTRIBUTION WIDTH 14.1 % (11.5-14.5); WHITE BLOOD COUNT 7.5 X10'3 (4.5-11.0)
[2019-05-21 11:59] LABS: ALANINE AMINOTRANSFERASE 30 U/L (12-78); ALBUMIN 2.6 G/DL (3.4-5.0); ALKALINE PHOSPHATASE 86 IU/L (46-116); AMYLASE 57 U/L (25-115); ANION GAP 7 (8-16); CHLORIDE 109 MMOL/L (99-107); CREATININE 1.33 MG/DL (0.60-1.10); LIPASE 158 U/L (73-393); POTASSIUM 3.8 MMOL/L (3.5-5.1); SODIUM 141 MMOL/L (135-145); TOTAL CARBON DIOXIDE 24.9 MMOL/L (24-32); eGFR 54 ML/MIN
[2019-05-21 12:00] LABS: ALBUMIN/GLOBULIN RATIO 0.5 (1.1-1.5); ASPARTATE AMINO TRANSFERASE 54 U/L (10-37); BILIRUBIN,TOTAL 1.9 MG/DL (0.1-1.0); BLOOD UREA NITROGEN 16 MG/DL (7-18); CALCIUM 8.7 MG/DL (8.5-10.1); GLUCOSE 152 MG/DL (70-104); TOTAL PROTEIN 8.2 G/DL (6.4-8.2)
[2019-05-21] MEDS ORDERED: PANT-47 PO (12:00)
[2019-05-21] MEDS ORDERED: SPIR25TA5 PO (12:00)
[2019-05-21] MEDS ORDERED: MYCO250C46 PO (12:00)
[2019-05-21 12:13] LABS: PARTIAL THROMBOPLASTIN TIME 27 SECONDS (22-32)
[2019-05-21 12:14] LABS: CLARITY,URINE CLEAR (Clear); COLOR,URINE YELLOW (Yellow); GLUCOSE, URINE >=1000 mg/dl (Neg); KETONES,URINE 15 mg/dl (Neg); LEUKOCYTE ESTERASE ,URINE NEGATIVE (Neg); NITRITES, URINE NEGATIVE (Neg); OCCULT BLOOD,URINE NEGATIVE (Neg); PROTEIN,URINE NEGATIVE (Neg)
[2019-05-21 12:18] LABS: URINE AMPHETAMINE SCREEN NEGATIVE (Neg); URINE BARBITUATE SCREEN NEGATIVE (Neg); URINE BENZODIAZEPINES SCREEN NEGATIVE (Neg); URINE CANNABINOID SCREEN NEGATIVE (Neg); URINE COCAINE SCREEN NEGATIVE (Neg); URINE METHADONE SCREEN NEGATIVE (Neg); URINE OPIATE SCREEN NEGATIVE (Neg); URINE PHENCYCLIDINE SCREEN NEGATIVE (Neg)
[2019-05-21 12:20] LABS: ETHANOL < 0.010 GM/DL (0.0-0.010); TROPONIN I < 0.04 NG/ML (0.0-0.05)
[2019-05-21 12:22] LABS: UA COLLECTION TYPE STRAIGHT CATH
[2019-05-21 12:23] LABS: BACTERIA,URINE NONE SEEN /HPF (Neg); SQUAMOUS EPITHELIAL CELL,UR FEW /LPF (FEW); WBC,URINE 0-4 /HPF (0-4)
[2019-05-21 12:24] LABS: MUCUS STRANDS FEW /LPF (Neg); RBC,URINE 0-2 /HPF (0-2)
[2019-05-21] MEDS ORDERED: ondansetron/PF 4mg/2ml inj IV PRN (13:00)
[2019-05-21] MEDS ORDERED: potassium Cl 20 mEq SR tablet PO PRN (13:00)
[2019-05-21] MEDS ORDERED: morphine 2 MG/ML inj. syringe IV PRN ×2 (13:00)
[2019-05-21] MEDS ORDERED: acetaminophen 325mg tablet PO PRN (13:00)
[2019-05-21] MEDS ORDERED: magnesium 4gm in 100ml NS 100 ML IV PRN (13:00)
[2019-05-21] MEDS ORDERED: mag hydrox/Alum hydrox/simeth 30ml oral suspension PO PRN (13:00)
[2019-05-21] MEDS ORDERED: magnesium hydroxide 30ml (MOM) UD suspension PO PRN (13:00)
[2019-05-21] MEDS ORDERED: potassium CL 10mEq/100ml bag 100 ML IV PRN ×2 (13:00)
[2019-05-21] MEDS ORDERED: magnesium Cl slow-release 64mg tablet PO PRN (13:00)
[2019-05-21] MEDS ORDERED: magnesium 2GM in 50ml NS 50 ML IV PRN (13:00)
[2019-05-21] MEDS: lactulose 20gm/30ml cup PO SCH ×3 (15:14→23:02)
[2019-05-21] MEDS ORDERED: MESSAGE TO PHARMACY PO ONE (19:15)
[2019-05-21] MEDS ORDERED: insulin Lispro (HumaLOG) vial - multi-dose SQ SCH (19:15)
[2019-05-21] MEDS ORDERED: dextrose 50%-water 50ml dispensing syringe IV PRN ×2 (19:15)
[2019-05-21] MEDS ORDERED: dextrose ORAL solution 15 GM/59 ML bottle PO PRN ×2 (19:15)
[2019-05-21] MEDS ORDERED: glucagon, human recombinant 1mg kit SUBCUT PRN (19:15)
[2019-05-21 19:30] VITALS: BP 126/72
[2019-05-21] MEDS: furosemide 20 MG/2 ML vial IV SCH (19:45)
[2019-05-21] MEDS: mycophenolate mofetil 250mg capsule PO SCH (19:49)
[2019-05-21 19:58] LABS: HEMOGLOBIN A1C 6.1 % (4.5-6.2)
[2019-05-21] MEDS: K and/or MAG REPLACEMENT MC SCH (20:00)
--- NOTE | 2019-05-21 20:00 | NUR ---
pt ate 100 % of a esquivel burrito that bought him (just after first accucheck was taken); pt then ate his dinner that dietary brought up Addendum: 05/21/19 at 2335 by Alexa Ritter RN Amended: Links added.
[2019-05-21] MEDS ORDERED: insulin glargine (Lantus) pen - multi-dose SQ SCH (21:00)
[2019-05-22] VITALS: BP 107/68
[2019-05-22 05:10] LABS: BASOPHILS % (AUTO) 0.8 % (0-1); EOSINOPHILS # (AUTO) 0.2 X10'3 (0-0.9); EOSINOPHILS % (AUTO) 2.9 % (0-6); HEMATOCRIT 31.1 % (42.0-52.0); HEMOGLOBIN 11.1 g/dl (14.0-17.9); LYMPHOCYTES # (AUTO) 1.1 X10'3 (1.1-4.8); LYMPHOCYTES % (AUTO) 19.8 % (21-51); MEAN CORPUSCULAR HEMOGLOBIN 34.1 PG (27.0-31.0); MEAN CORPUSCULAR HGB CONC 35.7 g/dL (33.0-36.5); MEAN CORPUSCULAR VOLUME 95.4 FL (78-98); MEAN PLATELET VOLUME 8.1 FL (7.4-10.4); MONOCYTES # (AUTO) 0.8 X10'3 (0-0.9); MONOCYTES % (AUTO) 14.8 % (2-12); NEUTROPHILS # (AUTO) 3.5 X10'3 (1.8-7.7); NEUTROPHILS % (AUTO) 61.7 % (42-75); PLATELET COUNT 150 X10'3 (140-440); RED BLOOD COUNT 3.26 X10'6 (4.70-6.10); RED CELL DISTRIBUTION WIDTH 14.1 % (11.5-14.5); WHITE BLOOD COUNT 5.6 X10'3 (4.5-11.0)
[2019-05-22 05:27] LABS: ALBUMIN 1.9 G/DL (3.4-5.0); ANION GAP 7 (8-16); BLOOD UREA NITROGEN 16 MG/DL (7-18); BUN/CREATININE RATIO 12.1 (5.4-32.0); CALCIUM 8.2 MG/DL (8.5-10.1); CHLORIDE 114 MMOL/L (99-107); CREATININE 1.32 MG/DL (0.60-1.10); MAGNESIUM 1.7 MG/DL (1.5-2.4); POTASSIUM 3.3 MMOL/L (3.5-5.1); SODIUM 147 MMOL/L (135-145); eGFR 55 ML/MIN
[2019-05-22 05:33] LABS: GLUCOSE 193 MG/DL (70-104)
--- NOTE | 2019-05-22 07:08 | NUR ---
Patient in room [facility] 357. I have received report from Pat RN and had the opportunity to ask questions and assume patient care.
[2019-05-22] MEDS: lactulose 20gm/30ml cup PO SCH ×2 (07:42→11:49)
[2019-05-22] MEDS: furosemide 20 MG/2 ML vial IV SCH (07:44)
[2019-05-22] MEDS: mycophenolate mofetil 250mg capsule PO SCH (07:47)
[2019-05-22 08:00] VITALS: BP 125/73
[2019-05-22] MEDS ORDERED: enoxaparin 40mg/0.4ml syringe SQ SCH (08:00)
[2019-05-22] MEDS ORDERED: pantoprazole 40mg Tablet.DR PO SCH (08:00)
[2019-05-22] MEDS: potassium Cl 20 mEq SR tablet PO PRN ×2 (08:24→12:43)
[2019-05-22] MEDS: K and/or MAG REPLACEMENT MC SCH (08:25)
[2019-05-22 12:00] VITALS: BP 111/76
[2019-05-22] MEDS ORDERED: LACT10SO PO (14:29)
--- NOTE | 2019-05-22 15:24 | NUR ---
Patient D/C'd home per Dr Polanco. Alert oriented x2. stable condition. Discharge and medication instructions given to pt and palliative care physician. IV removed. Escorted pt walking to lobby. Patient left hospital accompanied by via private vehicle.
== END 2019-05-22 15:16 | disposition home or self-care (01) | DRG 279 ==
LOC: ER 10:33 → ED HOLD 13:00 → SUR 3N 18:59
PROVIDERS: ADMIT Hospitalist; ATTEND Internal Medicine
DX: K72.90 Hepatic failure, unspecified without coma (principal); N17.9 Acute kidney failure, unspecified; E11.22 Type 2 diabetes mellitus with diabetic chronic kidney disease; K74.60 Unspecified cirrhosis of liver; N18.9 Chronic kidney disease, unspecified; Z79.899 Other long term (current) drug therapy
CPT/HCPCS: 36415; 70450; 71045; 80048; 80053; 80305; 80320; 81001; 82140; 82150; 82948; 83036; 83690; 83735; 84484; 85025; 85610; 85730; 87081; 93005; 96374; 99285; G0378; J1650; J1815; J1940; J2405; J7517

== ENCOUNTER 2019-06-05 07:39 | Day surgery (SDC) | payer MEDICAID ==
[~2019-06-05] VITALS: Ht 177.8 cm; Wt 100.8 kg
[~2019-06-05 07:39] MED LIST changes: +LACT10SO PO; -LACT10SO57 PO; +MYCO250C46 PO; +PANT-47 PO; +SPIR25TA5 PO
[2019-06-05] MEDS ORDERED: albumin 25% 100mL bottle x 1 IV PRN (07:55)
[2019-06-05] MEDS ORDERED: normal saline 1000ml 1,000 ML IV PRN (07:55)
== END 2019-06-05 09:20 | disposition home or self-care (01) ==
LOC: SSTAY O 07:39
PROVIDERS: ATTEND Radiology Vascular & Interventional Radiology
DX: R18.8 Other ascites (principal); Z79.899 Other long term (current) drug therapy
CPT/HCPCS: 76705; J7030

== ENCOUNTER 2019-06-23 06:30 | Day surgery (SDC) | payer MEDICAID ==
[2019-06-23] VITALS (7 sets, daily range): BP systolic 96–123; BP diastolic 60–70
[~2019-06-23] VITALS: Ht 177.8 cm; Wt 109.4 kg
[2019-06-23] MEDS ORDERED: LACT10SO PO (07:00)
[2019-06-23] MEDS ORDERED: albumin 25% 100mL bottle x 1 IV PRN (07:05)
[2019-06-23] MEDS ORDERED: normal saline 1000ml 1,000 ML IV PRN (07:05)
== END 2019-06-23 09:15 | disposition home or self-care (01) ==
LOC: SSTAY O 06:30
PROVIDERS: ATTEND Radiology Diagnostic Radiology
DX: R18.8 Other ascites (principal)
CPT/HCPCS: 49083; C1729; P9047

== ENCOUNTER 2019-09-12 06:52 | Day surgery (SDC) | payer BC, MEDICAID ==
[~2019-09-12] VITALS: Ht 177.8 cm; Wt 102.6 kg
[2019-09-12] MEDS ORDERED: normal saline 1000ml 1,000 ML IV PRN (07:10)
[2019-09-12] MEDS ORDERED: albumin 25% 100mL bottle x 1 IV PRN (07:10)
== END 2019-09-12 08:40 | disposition home or self-care (01) ==
LOC: SSTAY O 06:52 → MED 3N 06:59 → SSTAY O 08:40
PROVIDERS: ATTEND Radiology Vascular & Interventional Radiology
DX: R18.8 Other ascites (principal); Z53.8 Procedure and treatment not carried out for other reasons; K74.69 Other cirrhosis of liver; K76.6 Portal hypertension; E11.9 Type 2 diabetes mellitus without complications; Z79.899 Other long term (current) drug therapy
CPT/HCPCS: 76705

== ENCOUNTER 2019-12-26 06:24 | Day surgery (SDC) | payer BC, MEDICARE, MEDICAID ==
[~2019-12-26] VITALS: Ht 172.7 cm; Wt 106.6 kg
[2019-12-26] MEDS ORDERED: albumin 25% 100mL bottle x 1 IV PRN (06:50)
[2019-12-26] MEDS ORDERED: normal saline 1000ml 1,000 ML IV PRN (06:50)
[2019-12-26 07:08] VITALS: BP 139/71
== END 2019-12-26 08:30 | disposition home or self-care (01) ==
LOC: SSTAY O 06:24
PROVIDERS: ATTEND Radiology Vascular & Interventional Radiology
DX: R18.8 Other ascites (principal); K74.69 Other cirrhosis of liver; E11.9 Type 2 diabetes mellitus without complications; Z79.899 Other long term (current) drug therapy
CPT/HCPCS: 76705

== ENCOUNTER 2021-03-23 16:10 | Emergency (ER) | payer BC, MEDICARE, MEDICAID ==
[~2021-03-23] VITALS: Ht 172.7 cm; Wt 101.0 kg
[~2021-03-23 16:10] MED LIST changes: -LACT10SO PO; +LACT10SO3 PO
[2021-03-23 16:19] VITALS: BP 173/97
[2021-03-23 17:12] LABS: BASOPHILS % (AUTO) 0.5 % (0-1); EOSINOPHILS % (AUTO) 0.3 % (0-6); HEMATOCRIT 45.4 % (42.0-52.0); HEMOGLOBIN 16.3 g/dl (14.0-17.9); LYMPHOCYTES # (AUTO) 1.2 X10'3 (1.1-4.8); LYMPHOCYTES % (AUTO) 17.4 % (21-51); MEAN CORPUSCULAR HEMOGLOBIN 33.1 PG (27.0-31.0); MEAN CORPUSCULAR HGB CONC 35.8 g/dL (33.0-36.5); MEAN CORPUSCULAR VOLUME 92.3 FL (78-98); MONOCYTES # (AUTO) 0.6 X10'3 (0-0.9); MONOCYTES % (AUTO) 9.1 % (2-12); NEUTROPHILS # (AUTO) 4.8 X10'3 (1.8-7.7); NEUTROPHILS % (AUTO) 72.7 % (42-75); PLATELET COUNT 152 X10'3 (140-440); RED BLOOD COUNT 4.92 X10'6 (4.70-6.10); RED CELL DISTRIBUTION WIDTH 13.5 % (11.5-14.5); WHITE BLOOD COUNT 6.7 X10'3 (4.5-11.0)
[2021-03-23 17:24] LABS: PARTIAL THROMBOPLASTIN TIME 26 SECONDS (22-32)
[2021-03-23 17:28] LABS: ALANINE AMINOTRANSFERASE 43 U/L (12-78); ALBUMIN 3.3 G/DL (3.4-5.0); ALBUMIN/GLOBULIN RATIO 0.6 (1.1-1.5); ALKALINE PHOSPHATASE 112 IU/L (46-116); ANION GAP 12 (8-16); ASPARTATE AMINO TRANSFERASE 37 U/L (10-37); BILIRUBIN,TOTAL 1.2 MG/DL (0.1-1.0); BLOOD UREA NITROGEN 21 MG/DL (7-18); CALCIUM 9.7 MG/DL (8.5-10.1); CHLORIDE 102 MMOL/L (99-107); GLUCOSE 438 MG/DL (70-104); SODIUM 136 MMOL/L (135-145); TOTAL CARBON DIOXIDE 21.9 MMOL/L (24-32); TOTAL PROTEIN 8.4 G/DL (6.4-8.2); eGFR 47 ML/MIN
[2021-03-23 17:32] LABS: LIPASE 296 U/L (73-393); MAGNESIUM 1.9 MG/DL (1.5-2.4)
[2021-03-23] MEDS ORDERED: iohexol 300mg/ml 100ml inj. ONE (22:17)
[2021-03-23] MEDS ORDERED: lactulose 20gm/30ml cup PO ONE (22:30)
[2021-03-23] MEDS ORDERED: insulin regular, human 10 units/0.1 ml syringe SQ ONE (22:35)
[2021-03-23] MEDS ORDERED: normal saline 1000ml 1,000 ML IV ONE (22:35)
--- NOTE | 2021-03-23 23:22 | NUR ---
CALL OUT TO PT WHO IS NOT IN LOBBY, LEFT VOICEMAIL FOR PT TO CALL/COME BACK TO ER
--- NOTE | 2021-03-23 23:39 | NUR ---
ULTRASOUND PAGED [id number]
[2021-03-24] MEDS ORDERED: LACT10SO3 PO (00:37)
== END 2021-03-24 01:08 | disposition home or self-care (01) ==
LOC: ER 16:11
DX: K72.90 Hepatic failure, unspecified without coma (principal); K74.60 Unspecified cirrhosis of liver; M54.89 Other dorsalgia; E11.9 Type 2 diabetes mellitus without complications; Z98.890 Other specified postprocedural states; Z79.899 Other long term (current) drug therapy
CPT/HCPCS: 36415; 74177; 76700; 80053; 82140; 82948; 83690; 83735; 84484; 85025; 85610; 85730; 93005; 96360; 96372; 99285; J1815; J7030; Q9967

== ENCOUNTER 2021-07-24 08:55 | Emergency (ER) | payer BC, MEDICARE, MEDICAID ==
[~2021-07-24] VITALS: Ht 177.8 cm; Wt 110.0 kg
[2021-07-24 10:22] LABS: BASOPHILS # (AUTO) 0.1 X10'3 (0-0.2); BASOPHILS % (AUTO) 0.9 % (0-1); EOSINOPHILS # (AUTO) 0.3 X10'3 (0-0.9); EOSINOPHILS % (AUTO) 5.2 % (0-6); HEMATOCRIT 42.3 % (42.0-52.0); HEMOGLOBIN 14.6 g/dl (14.0-17.9); LYMPHOCYTES # (AUTO) 1.4 X10'3 (1.1-4.8); LYMPHOCYTES % (AUTO) 23.9 % (21-51); MEAN CORPUSCULAR HEMOGLOBIN 32.3 PG (27.0-31.0); MEAN CORPUSCULAR HGB CONC 34.4 g/dL (33.0-36.5); MEAN CORPUSCULAR VOLUME 93.8 FL (78-98); MEAN PLATELET VOLUME 9.1 FL (7.4-10.4); MONOCYTES # (AUTO) 0.6 X10'3 (0-0.9); MONOCYTES % (AUTO) 10.2 % (2-12); NEUTROPHILS # (AUTO) 3.6 X10'3 (1.8-7.7); NEUTROPHILS % (AUTO) 59.8 % (42-75); PLATELET COUNT 181 X10'3 (140-440); RED BLOOD COUNT 4.51 X10'6 (4.70-6.10); RED CELL DISTRIBUTION WIDTH 13.4 % (11.5-14.5)
--- NOTE | 2021-07-24 10:59 | NUR ---
SPOKE WITH WHO STATED XIFAXIN 550 MG BID FOR A MONTH. PATIENT WOKE HER UP AT 0700 THIS AM AND [facility] AND ASKED HIM "AM I ALIVE?" PATIENT IS ON LIST FOR LIVER TRANSPLANT AND CAN NOT HAVE LACTULOSE.
[2021-07-24] MEDS ORDERED: ALB0.5UD IH ×3 (11:01→11:36)
[2021-07-24 11:23] LABS: ALANINE AMINOTRANSFERASE 22 U/L (12-78); ALBUMIN/GLOBULIN RATIO 0.7 (1.1-1.5); ALKALINE PHOSPHATASE 64 IU/L (46-116); ASPARTATE AMINO TRANSFERASE 30 U/L (10-37); BILIRUBIN,TOTAL 0.9 MG/DL (0.1-1.0); BLOOD UREA NITROGEN 24 MG/DL (7-18); BUN/CREATININE RATIO 24.5 (5.4-32.0); CALCIUM 8.8 MG/DL (8.5-10.1); CREATININE 0.98 MG/DL (0.60-1.10); GLUCOSE 130 MG/DL (70-104); TOTAL CARBON DIOXIDE 26.1 MMOL/L (24-32); TOTAL PROTEIN 7.5 G/DL (6.4-8.2); eGFR 77 ML/MIN
[2021-07-24] MEDS ORDERED: PRED20TA PO ×3 (11:27→11:36)
[2021-07-24 11:54] VITALS: BP 132/68
[2021-07-25 15:38] LABS: ANION GAP 5 (8-16); CHLORIDE 107 MMOL/L (99-107); SODIUM 138 MMOL/L (135-145)
== END 2021-07-24 11:57 | disposition home or self-care (01) ==
LOC: ER 08:58
DX: J44.1 Chronic obstructive pulmonary disease with (acute) exacerbation (principal); R42 Dizziness and giddiness; R41.0 Disorientation, unspecified; R06.02 Shortness of breath; E11.9 Type 2 diabetes mellitus without complications; Z98.890 Other specified postprocedural states; Z79.899 Other long term (current) drug therapy
CPT/HCPCS: 36415; 71045; 80053; 82948; 83880; 84484; 85025; 93005; 99285

== ENCOUNTER 2023-03-07 07:31 | Day surgery (SDC) | payer MEDICARE, MEDICAID ==
[~2023-03-07] VITALS: Ht 177.8 cm; Wt 117.0 kg
[~2023-03-07 07:31] MED LIST changes: +ALB0.5UD IH
[2023-03-07 07:52] VITALS: BP 149/77; PULSE 82; RESP 16; TEMP 97.8; O2SAT 95
[2023-03-07] MEDS ORDERED: normal saline 1000ml 1,000 ML IV PRN (07:55)
[2023-03-07] MEDS ORDERED: ALB0.5UD NEB (08:23)
[2023-03-07 08:24] LABS: BASOPHILS % (AUTO) 0.4 % (0-1); EOSINOPHILS # (AUTO) 0.2 X10'3 (0-0.9); EOSINOPHILS % (AUTO) 2.1 % (0-6); HEMATOCRIT 44.7 % (42.0-52.0); HEMOGLOBIN 15.7 g/dl (14.0-17.9); LYMPHOCYTES # (AUTO) 2.2 X10'3 (1.1-4.8); LYMPHOCYTES % (AUTO) 26.4 % (21-51); MEAN CORPUSCULAR HEMOGLOBIN 32.4 PG (27.0-31.0); MEAN CORPUSCULAR VOLUME 92.6 FL (78-98); MEAN PLATELET VOLUME 9.4 FL (7.4-10.4); MONOCYTES # (AUTO) 0.8 X10'3 (0-0.9); MONOCYTES % (AUTO) 9.5 % (2-12); NEUTROPHILS # (AUTO) 5.2 X10'3 (1.8-7.7); NEUTROPHILS % (AUTO) 61.6 % (42-75); PLATELET COUNT 170 X10'3 (140-440); RED BLOOD COUNT 4.83 X10'6 (4.70-6.10); RED CELL DISTRIBUTION WIDTH 13.4 % (11.5-14.5); WHITE BLOOD COUNT 8.5 X10'3 (4.5-11.0)
[2023-03-07] MEDS ORDERED: RIFA550T PO (08:29)
[2023-03-07] MEDS ORDERED: ONDA-103 PO (08:29)
[2023-03-07] MEDS ORDERED: GLIM4TAB7 PO (08:29)
[2023-03-07] MEDS ORDERED: FLUT1BLS16 INH (08:29)
[2023-03-07] MEDS ORDERED: OXYB-58 PO (08:29)
[2023-03-07] MEDS ORDERED: MYCO250C PO (08:29)
[2023-03-07 08:52] LABS: ALBUMIN 3.2 G/DL (3.4-5.0); ANION GAP 12 (8-16); BLOOD UREA NITROGEN 19 MG/DL (7-18); CHLORIDE 106 MMOL/L (99-107); CREATININE 1.19 MG/DL (0.60-1.10); GLUCOSE 172 MG/DL (70-104); POTASSIUM 3.5 MMOL/L (3.5-5.1); SODIUM 139 MMOL/L (135-145); TOTAL CARBON DIOXIDE 21.3 MMOL/L (24-32); eCRCL 61 ML/MIN; eGFR 61 ML/MIN
[2023-03-07] MEDS ORDERED: iohexol 300mg/ml 100ml inj. ONE (08:55)
[2023-03-07] MEDS ORDERED: heparin 1,000 UNITS/NS 500ml 500 ML ONE (08:55)
[2023-03-07] MEDS ORDERED: fentaNYL/PF 50MCG/1 ML 2ML syringe ONE (08:55)
[2023-03-07] MEDS ORDERED: midazolam 1 mg/ML 2ml injection ONE (08:55)
[2023-03-07 09:00] VITALS: RESP 16; O2SAT 95
[2023-03-07 09:00] LABS: INR 1.1 INR; PROTHROMBIN TIME 11.3 SECONDS (9.0-12.0)
[2023-03-07 11:04] VITALS: BP 157/95; PULSE 72; RESP 16; O2SAT 93
[2023-03-07 11:18] VITALS: BP 131/49; PULSE 69; RESP 16; O2SAT 93
[2023-03-07 11:33] VITALS: BP 150/80; PULSE 78; RESP 16; O2SAT 92
[2023-03-07 11:48] VITALS: BP 136/78; PULSE 70; RESP 16; O2SAT 92
== END 2023-03-07 12:07 | disposition home or self-care (01) ==
LOC: SSTAY O 07:31
PROVIDERS: ATTEND Radiology Vascular & Interventional Radiology
DX: K74.60 Unspecified cirrhosis of liver (principal); R18.8 Other ascites; E11.9 Type 2 diabetes mellitus without complications; Z79.899 Other long term (current) drug therapy; Z80.0 Family history of malignant neoplasm of digestive organs
CPT/HCPCS: 36415; 37183; 76937; 80048; 82948; 85025; 85610; 99152; 99153; C1769; J1644; J2250; J3010; J7030; Q9967; A4620; C1725; C1894

== ENCOUNTER 2023-06-06 14:03 | Emergency (ER) | payer MEDICARE, OTHER ==
[~2023-06-06] VITALS: Ht 172.7 cm; Wt 115.9 kg
[~2023-06-06 14:03] MED LIST changes: -ALB0.5UD IH; +ALB0.5UD NEB; +FLUT1BLS16 INH; +GLIM4TAB7 PO; -LACT10SO3 PO; +MYCO250C PO; +ONDA-103 PO; +OXYB-58 PO; +RIFA550T PO; -SPIR25TA5 PO
[2023-06-06 17:10] LABS: BASOPHILS # (AUTO) 0.1 X10'3 (0-0.2); BASOPHILS % (AUTO) 0.8 % (0-1); EOSINOPHILS % (AUTO) 0.3 % (0-6); HEMATOCRIT 50.7 % (42.0-52.0); HEMOGLOBIN 17.6 g/dl (14.0-17.9); LYMPHOCYTES # (AUTO) 0.7 X10'3 (1.1-4.8); LYMPHOCYTES % (AUTO) 9.8 % (21-51); MEAN CORPUSCULAR HEMOGLOBIN 32.4 PG (27.0-31.0); MEAN CORPUSCULAR HGB CONC 34.7 g/dL (33.0-36.5); MEAN CORPUSCULAR VOLUME 93.4 FL (78-98); MEAN PLATELET VOLUME 9.1 FL (7.4-10.4); MONOCYTES # (AUTO) 1.1 X10'3 (0-0.9); NEUTROPHILS # (AUTO) 5.8 X10'3 (1.8-7.7); NEUTROPHILS % (AUTO) 75.1 % (42-75); PLATELET COUNT 189 X10'3 (140-440); RED BLOOD COUNT 5.43 X10'6 (4.70-6.10); RED CELL DISTRIBUTION WIDTH 13.7 % (11.5-14.5); WHITE BLOOD COUNT 7.7 X10'3 (4.5-11.0)
[2023-06-06 17:23] LABS: ALANINE AMINOTRANSFERASE 78 U/L (12-78); ALBUMIN 3.3 G/DL (3.4-5.0); ALBUMIN/GLOBULIN RATIO 0.6 (1.1-1.5); ALKALINE PHOSPHATASE 103 IU/L (46-116); ANION GAP 11 (8-16); ASPARTATE AMINO TRANSFERASE 75 U/L (10-37); BILIRUBIN,TOTAL 1.5 MG/DL (0.1-1.0); BLOOD UREA NITROGEN 12 MG/DL (7-18); BUN/CREATININE RATIO 8.8 (10.0-20.0); CALCIUM 9.2 MG/DL (8.5-10.1); CHLORIDE 102 MMOL/L (99-107); CREATININE 1.36 MG/DL (0.60-1.10); GLUCOSE 178 MG/DL (70-104); POTASSIUM 3.8 MMOL/L (3.5-5.1); SODIUM 139 MMOL/L (135-145); TOTAL CARBON DIOXIDE 26.2 MMOL/L (24-32); TOTAL PROTEIN 9.3 G/DL (6.4-8.2); eCRCL 50 ML/MIN; eGFR 52 ML/MIN
[2023-06-06 21:04] LABS: BILIRUBIN,URINE NEGATIVE (Neg); CLARITY,URINE CLEAR (Clear); COLOR,URINE YELLOW (Yellow); GLUCOSE, URINE >=1000 mg/dl (Neg); KETONES,URINE 15 mg/dl (Neg); LEUKOCYTE ESTERASE ,URINE NEGATIVE (Neg); NITRITES, URINE NEGATIVE (Neg); OCCULT BLOOD,URINE SMALL (Neg); PH,URINE 5.5 (4.8-8.0); PROTEIN,URINE 30 mg/dl (Neg); UROBILINOGEN,URINE 0.2 E.U/dL (0.2-1.0)
[2023-06-06 21:08] LABS: UA COLLECTION TYPE CLN CATCH MIDSTREAM
[2023-06-06 21:14] LABS: BACTERIA,URINE FEW /HPF (Neg); MUCUS STRANDS NONE SEEN /LPF (Neg); RBC,URINE 0-2 /HPF (0-2); SQUAMOUS EPITHELIAL CELL,UR FEW /LPF (FEW); WBC,URINE 0-4 /HPF (0-4)
[2023-06-06 22:39] VITALS: BP 182/78; PULSE 90; TEMP 98; O2SAT 93
[2023-06-06] MEDS ORDERED: AZIT-164 PO (22:39)
[2023-06-06] MEDS ORDERED: azithromycin 250mg tablet PO ONE (22:40)
[2023-06-06 22:41] VITALS: RESP 18
== END 2023-06-06 22:52 | disposition home or self-care (01) ==
LOC: ER 14:03
DX: J06.9 Acute upper respiratory infection, unspecified (principal); K72.90 Hepatic failure, unspecified without coma; E11.9 Type 2 diabetes mellitus without complications; Z79.2 Long term (current) use of antibiotics; Z79.899 Other long term (current) drug therapy; Z98.890 Other specified postprocedural states
CPT/HCPCS: 36415; 71045; 80053; 81001; 82140; 84484; 85025; 99284

== ENCOUNTER 2024-09-27 22:39 | Emergency (ER) | payer MEDICARE, BC ==
[~2024-09-27] VITALS: Ht 172.7 cm; Wt 112.5 kg
--- NOTE | 2024-09-27 23:04 | ELECTROCARDIOGRAPH REPORT ---
[facility] Test Date: 2024-09-27 Test Time: 23:01:58 Pat Name: KEYON SHAW Department: EMERGENCY ROOM Room: Gender: M Certification Engineer: BERTHA : [id number] Requested By: SHELBY SILVA Order Number: [id number] Reading MD: Measurements Intervals [place] Rate: 83 P: 42 OH: 173 QRS: 75 QRSD: 102 T: 16 QT: 390 QTc: 459 Interpretive Statements Sinus rhythm Probable left atrial enlargement Anteroseptal infarct, age indeterminate Please click the below link to view image of tracing.
[2024-09-27 23:38] LABS: ALANINE AMINOTRANSFERASE 29 U/L (12-78); ALBUMIN/GLOBULIN RATIO 0.7 (1.1-1.5); ALKALINE PHOSPHATASE 110 IU/L (46-116); ANION GAP 10 (8-16); BASOPHILS # (AUTO) 0.1 X10'3 (0-0.2); BASOPHILS % (AUTO) 0.9 % (0-1); BILIRUBIN,TOTAL 0.8 MG/DL (0.1-1.0); BLOOD UREA NITROGEN 13 MG/DL (7-18); BUN/CREATININE RATIO 12.9 (10.0-20.0); CALCIUM 9.1 MG/DL (8.5-10.1); CHLORIDE 104 MMOL/L (99-107); CREATININE 1.01 MG/DL (0.60-1.10); EOSINOPHILS # (AUTO) 0.4 X10'3 (0-0.9); GLUCOSE 386 MG/DL (70-104); HEMATOCRIT 47.7 % (42.0-52.0); HEMOGLOBIN 16.4 g/dl (14.0-17.9); LYMPHOCYTES # (AUTO) 2.2 X10'3 (1.1-4.8); LYMPHOCYTES % (AUTO) 28.8 % (21-51); MEAN CORPUSCULAR HEMOGLOBIN 31.5 PG (27.0-31.0); MEAN CORPUSCULAR HGB CONC 34.5 g/dL (33.0-36.5); MEAN CORPUSCULAR VOLUME 91.3 FL (78-98); MONOCYTES # (AUTO) 0.8 X10'3 (0-0.9); MONOCYTES % (AUTO) 10.4 % (2-12); NEUTROPHILS % (AUTO) 53.9 % (42-75); PLATELET COUNT 194 X10'3 (140-440); RED BLOOD COUNT 5.22 X10'6 (4.70-6.10); RED CELL DISTRIBUTION WIDTH 13.8 % (11.5-14.5); SODIUM 141 MMOL/L (135-145); TOTAL CARBON DIOXIDE 26.8 MMOL/L (24-32); TOTAL PROTEIN 7.3 G/DL (6.4-8.2); WHITE BLOOD COUNT 7.5 X10'3 (4.5-11.0); eCRCL 67 ML/MIN; eGFR 73 ML/MIN
[2024-09-27 23:46] LABS: PRO BRAIN NATRIURETIC PEPTIDE 114 PG/ML (0-125)
[2024-09-27 23:59] LABS: ASPARTATE AMINO TRANSFERASE 44 U/L (10-37); POTASSIUM 4.7 MMOL/L (3.5-5.1)
--- NOTE | 2024-09-28 00:38 | RADIOLOGY REPORT ---
Clinical History CP Comparison None Technique: single view chest Without Contrast KEYON SHAW, [id number] FINDINGS: Trachea is midline, heart size normal, cardiomediastinal silhouette unremarkable. There is no pneumonia or pulmonary vascular congestion, no pneumothorax, no evidence of pleural or pe ricardial effusion. Osseous structures are unremarkable of the single image. IMPRESSION: 1. No evidence of acute cardiopulmonary disease. This report was electronically signed by Yordy Barrett MD on 09/28/2024 12:34:51 AM.
--- NOTE | 2024-09-28 01:25 | Physician Documentation ---
History of Present Illness ~ Chief Complaint: Dizziness Stated Complaint: DIZZINESS Time Seen by MD: 01:23 Primary Medical Doctor: IAN Source: patient, family Mode of Arrival: POV HPI Patient presenting with his who provides further history. He was under his tractor working on the motor when he went to get up he had sudden-onset spinning sensation. He then had any symptoms with any standing or movements. This is persistent for several hours. He currently complains of no symptoms while at rest but any time he gets up and moves he feels acute worsening. Also worsened by turning his head Medication Reconciliation Allergies: Coded Allergies: No Known Allergies (Unverified , 09/27/24) Scheduled Dapagliflozin/Metformin HCl (Xigduo Xr 10 mg-500 mg Tablet), DAILY, (Reported) Fluticasone/Umeclidin/Vilanter (Trelegy Ellipta 200-62.5-25), 1 PUFFS INH DAILY, (Reported) Glimepiride* (Amaryl*), 1 TAB PO BID, (Reported) Mycophenolate Mofetil (Mycophenolate Mofetil), 2 CAP PO BID, (Reported) Mycophenolate Mofetil* (Cellcept*), 2 CAP PO Q12H, (Reported) Oxybutynin Chloride (Ditropan Xl), 1 TAB PO DAILY, (Reported) Pantoprazole Sodium (PROTONIX tablet), 20 MG PO DAILY, (Reported) Rifaximin (Xifaxan), 1 TAB PO DAILY, (Reported) Scheduled PRN Albuterol Sulfate* (Proventil Neb*), 2.5 MG NEB Q4H PRN for SOB or wheezing, (Reported) Ondansetron HCl (Ondansetron HCl), 1 TAB PO PRN PRN for nausea/vomiting, (Reported) Past Medical History Past Medical History: Liver Failure, Diabetes Past Surgical History: other Other Past Surgical History: TIPPS Alcohol Use: None Drug Use: none Lives with: Spouse Lives In: Home Review of Systems Constitutional: Denies: fever Respiratory: Denies: shortness of breath Cardiovascular: Denies: chest pain Gastrointestinal: Denies: abdominal pain Neurological: Reports: dizziness; Denies: headache, fainting, tingling Physical Exam Vital Signs: Temperature: 98.3, Source: Oral, Heart Rate: 80, Respiratory Rate: 10, BP: 154/80, Pulse Oximetry: 95, Weight: 112.500 Physical Exam Well-appearing no distress resting comfortably in bed Extraocular motions intact no nystagmus Normal [id number] no dysmetria Normal speech No aphasia no dysarthria cranial nerves 2-12 intact Strength 5/5 bilateral upper and lower extremity. Progress Progress Note Reassess patient at 4:50 a.m. he is nearly resolved he is feeling much better and would like to go home he does not want to stay in the hospital any further for any further testing Results/Orders Reviewed/noted all lab results: Yes Results/Orders Orders - SHELBY SILVA MD Chest,Single View (09/27/24 23:00) Monitor (09/27/24 23:00) Saline Lock (09/27/24 23:00) Oxygen (09/27/24 23:00) Hs Troponin I W Calculations (09/28/24 02:00) Cta Neck/Head (09/28/24 02:30) Ct Head (09/28/24 02:30) Completed Orders - SHELBY SILVA MD Chest,Single View (09/27/24 23:00) Cbc/Diff (09/27/24 23:00) PBNP (09/27/24 23:00) Electrocardiogram (09/27/24 23:00) CMP (09/27/24 23:00) Hs Troponin I W Calculations (09/27/24 23:00) Hs Troponin I W Calculations (09/28/24 01:00) Meclizine Tablets (Antivert Tablet) (09/28/24 01:35) Cta Neck/Head (09/28/24 02:30) Ct Head (09/28/24 02:30) Iohexol 350mg/Ml 100ml (Omnipaque 350mg/ (09/28/24 01:44) Lorazepam Inj (Ativan Inj) (09/28/24 02:25) Medications Received in ER Medications (Trade) Dose Ordered Sig/Rayshawn Route PRN Reason Start Time Stop Time Status Last Admin Dose Admin (Antivert tablet) 50 mg ONCE ONCE PO 09/28/24 01:35 09/28/24 01:36 DC 09/28/24 01:41 50 MG (Ativan inj) 1 mg ONCE ONCE IV 09/28/24 02:25 09/28/24 02:26 DC 09/28/24 02:41 1 MG Vital Signs 09/27/24 09/27/24 09/27/24 09/28/24 22:53 23:18 23:58 02:08 Temp 98.3 Pulse 80 74 Resp 10 16 B/P (MAP) 154/80 162/94 (116) Pulse Ox 95 95 O2 Flow Rate 0 Laboratory Tests Test 09/27/24 23:10 09/28/24 00:59 White Blood Count 7.5 Red Blood Count 5.22 Hemoglobin 16.4 Hematocrit 47.7 Mean Corpuscular Volume 91.3 Mean Corpuscular Hemoglobin 31.5 H Mean Corpuscular Hemoglobin Concent 34.5 Red Cell Distribution Width 13.8 Platelet Count 194 Mean Platelet Volume 10.0 Neutrophils (%) (Auto) 53.9 Lymphocytes (%) (Auto) 28.8 Monocytes (%) (Auto) 10.4 Eosinophils (%) (Auto) 6.0 Basophils (%) (Auto) 0.9 Neutrophils # (Auto) 4.0 Lymphocytes # (Auto) 2.2 Monocytes # (Auto) 0.8 Eosinophils # (Auto) 0.4 Basophils # (Auto) 0.1 CBC Comment Sodium Level 141 Potassium Level 4.7 Chloride Level 104 Carbon Dioxide Level 26.8 Anion Gap 10 Blood Urea Nitrogen 13 Creatinine 1.01 Estimated GFR/1.73 m2 73 BUN/Creatinine Ratio 12.9 Glucose Level 386 H Calcium Level 9.1 Total Bilirubin 0.8 Aspartate Amino Transf (AST/SGOT) 44 H Alanine Aminotransferase (ALT/SGPT) 29 Alkaline Phosphatase 110 Troponin I High Sensitivity 6 5 Pro-B-Type Natriuretic Peptide 114 Total Protein 7.3 Albumin 3.0 L Globulin 4.3 Albumin/Globulin Ratio 0.7 L Chemistry Comments Troponin I High Sens Percent Delta 16 Troponin I Hi Sens Absolute Change -1 EKG/XRAY/CT/US/VASC/MRI EKG : Additional Comment EKG independently interpreted by myself time 11:01 p.m. indication dizziness normal sinus rhythm rate 83 normal axis normal intervals no ST or T-wave abnormalities CT : Impression CT head independently interpreted by myself shows no intracranial hemorrhage Medical Decision Making Additional Information CVA, TIA, mass Departure Disposition: HOME / SELF CARE / HOMELESS Impression: Primary Impression: BPV (benign positional vertigo) Qualified Codes: H81.10 - Benign paroxysmal vertigo, unspecified ear Additional Impression Text Patient with a history strongly suggestive of BPV. Neuro exam unremarkable symptoms resolved with Ativan. CT angio unremarkable. Additional Instructions: As discussed we do recommend further evaluation. This should be done in the hospital however your preferences to manage this as an outpatient. Please call your primary care doctor in the next few days and return to the emergency department if your symptoms worsen Referrals: NO PRIMARY CARE PROVIDER (PCP) Prescriptions Meclizine HCl (Meclizine HCl) 25 Mg Tablet 1 TAB PO Q8H for 30 Days, #90 TAB Prov: SHELBY SILVA MD 09/28/24 Signature Scribe Signature: na Attestation: SHELBY Moreland MD September 28, 2024 01:25
[2024-09-28] MEDS: meclizine 12.5mg tablet PO ONE (01:41)
[2024-09-28] MEDS ORDERED: iohexol 350MG/ML 100ml bottle IV ONE (01:44)
[2024-09-28] MEDS: LORazepam 2 mg/ml vial IV ONE (02:41)
--- NOTE | 2024-09-28 03:20 | RADIOLOGY REPORT ---
EXAM: CT CT HEAD INDICATION: cva TECHNIQUE: CT of the head without intravenous contrast. Radiation Dose : 1. Head: CT Dose: CTDI volume is 60.75 mGy. Dose-length product is 1143.40 mGy*cm The dose indicators for CT are the volume Computed Tomography (CT) Dose Index (CTDIvol) and the Dose Length Product (DLP), and are measured in units of mGy and mGy-cm, respectively. These indicators are not patient dose, but values generated from the CT scanner acquisition factors. The report includes radiation exposure data for exposures received during this examination. COMPARISON: None FINDINGS: There is no evidence of acute intracranial hemorrhage, extra-axial collection, mass effect, midline s hift, herniation or hydrocephalus. The ventricles, sulci and cisterns are age appropriate. The bailey-white differentiation is intact. Patchy periventricular and subcortical white matter hypoattenuation is nonspecific but may be related to small vessel ischemic disease. Bilateral maxillary and ethmoid mucosal sinus disease. The remaining visualized paranasal sinuses an d mastoid air cells are clear. The surrounding soft tissues and osseous structures are unremarkable. IMPRESSION: 1. No acute intracranial abnormality. Radiation optimization: All CT scans at this facility use at least one of these dose optimization manuel hniques: automated exposure control mA and/or kV adjustment per patient size (includes targeted exam s where dose is matched to clinical indication) or iterative reconstruction.
--- NOTE | 2024-09-28 03:51 | RADIOLOGY REPORT ---
INDICATION: ataxia COMPARISON: None TECHNIQUE: CTA head without and with intravenous contrast. CTA neck with intravenous contrast. 3D image postprocessing was performed on a dedicated workstation and images were used for interpretation and reporting. Radiation Dose Information: CT Dose: CTDI volume is 36.62 mGy. Dose-length product is 583.63 mGy*cm FINDINGS: CT head: There is no evidence of acute intracranial hemorrhage, extra-axial collection, mass effect, midline s hift, herniation or hydrocephalus. The ventricles, sulci and cisterns are age appropriate. The bailey -white differentiation is intact. The visualized paranasal sinuses and mastoid air cells are clear. The surrounding soft tissues and osseous structures are unremarkable. CTA head: There is normal enhancement of the visualized distal internal carotid, anterior and middle cerebral a rteries. There is a normal anterior communicating artery complex. There are bilateral posterior comm unicating arteries. The vertebral, basilar, cerebellar and posterior cerebral arteries are within no rmal limits. The early parenchymal enhancement is grossly unremarkable. The visualized intracranial venous structures are grossly unremarkable. CTA neck: The visualized thoracic aortic arch and proximal great vessels are unremarkable. Atherosclerotic vasc ular calcifications are present. The left common, internal and external carotid arteries are within normal limits. The right common, internal and external carotid arteries are within normal limits. Atherosclerotic vascular calcifications are present bilaterally within the carotid bulbs without evid ence of significant resultant stenosis. The cervical segments of the right and left vertebral arteries are within normal limits. Left vertebr al artery dominance. The limited visualized lung apices are clear. The surrounding soft tissues and osseous structures ar e otherwise unremarkable. IMPRESSION: 1. No evidence of acute intracranial hemorrhage, mass effect or hydrocephalus. 2. No evidence of hemodynamically significant intracranial stenosis, proximal occlusion or aneurysm. 3. No evidence of hemodynamically significant cervical stenosis or dissection. All CT scans at this medical facility are performed using dose modulation techniques as appropriate t o a performed exam including the following: Automated exposure control was utilized; adjustment of th e MA and/or KV according to patient size; and use of iterative reconstruction technique.
[2024-09-28] MEDS ORDERED: MECL-302 PO (04:52)
[2024-09-28 04:56] VITALS: BP 139/78; PULSE 70; RESP 18; TEMP 97.6; O2SAT 99
== END 2024-09-28 04:58 | disposition home or self-care (01) ==
LOC: ER 22:39
DX: E11.9 Type 2 diabetes mellitus without complications (principal); Z79.899 Other long term (current) drug therapy; H81.10 Benign paroxysmal vertigo, unspecified ear
CPT/HCPCS: 36415; 70450; 70496; 70498; 71045; 80053; 83880; 84484; 85025; 93005; 96374; 99285; J2060; J7030; J8597; Q9967

== ENCOUNTER 2024-10-28 17:40 | Emergency (ER) | payer BC, MEDICARE ==
[~2024-10-28] VITALS: Ht 177.8 cm; Wt 112.0 kg
[~2024-10-28 17:40] MED LIST changes: +MECL-302 PO
--- NOTE | 2024-10-28 19:09 | Physician Documentation ---
History of Present Illness ~ Chief Complaint: Dizziness Stated Complaint: VERTIGO Time Seen by MD: 18:07 Primary Medical Doctor: IAN HARTMANN Patient is seen today with complaints of vertigo like symptoms with the room spinning for the last few days. Patient was seen recently for similar issue and was prescribed meclizine and was dosed with Ativan in the ER and they state that helps for a couple days but now patient states his symptoms have returned and he is unable to work. Patient denies any current nausea or vomiting. He states symptoms are worse when he moves his head from [id number]. He has no other concern or complaint of the same. Medication Reconciliation Allergies: Coded Allergies: No Known Allergies (Unverified , 09/27/24) Scheduled Dapagliflozin/Metformin HCl (Xigduo Xr 10 mg-500 mg Tablet), DAILY, (Reported) Fluticasone/Umeclidin/Vilanter (Trelegy Ellipta 200-62.5-25), 1 PUFFS INH DAILY, (Reported) Glimepiride* (Amaryl*), 1 TAB PO BID, (Reported) Meclizine HCl (Meclizine HCl), 1 TAB PO Q8H Mycophenolate Mofetil (Mycophenolate Mofetil), 2 CAP PO BID, (Reported) Mycophenolate Mofetil* (Cellcept*), 2 CAP PO Q12H, (Reported) Oxybutynin Chloride (Ditropan Xl), 1 TAB PO DAILY, (Reported) Pantoprazole Sodium (PROTONIX tablet), 20 MG PO DAILY, (Reported) Rifaximin (Xifaxan), 1 TAB PO DAILY, (Reported) Scheduled PRN Albuterol Sulfate* (Proventil Neb*), 2.5 MG NEB Q4H PRN for SOB or wheezing, (Reported) Ondansetron HCl (Ondansetron HCl), 1 TAB PO PRN PRN for nausea/vomiting, (Reported) Past Medical History Past Medical History: Liver Failure, Diabetes Past Surgical History: other Other Past Surgical History: TIPPS Alcohol Use: None Drug Use: none Lives with: Spouse Lives In: Home Review of Systems Constitutional: Denies: chills, fever, weakness Eyes: Denies: pain, blurred vision ENT: Denies: ear pain, nose pain, throat pain, mouth pain Respiratory: Denies: cough, shortness of breath Cardiovascular: Denies: chest pain, palpitations Gastrointestinal: Denies: abdominal pain, nausea, vomiting Genitourinary: Denies: burning, dysuria Male Genitalia: Denies: penile discharge, testicular pain Neurological: Denies: headache, dizziness Musculoskeletal: Denies: pain, swelling Integumentary: Denies: rash, lesions Allergic/Immunologic: Denies: hives, itching Hematologic/Lymphatic: Denies: no symptoms reported Psychiatric: Denies: depression, anxiety Physical Exam Vital Signs: Temperature: 98.1, Source: Temporal, Heart Rate: 78, Respiratory Rate: 15, BP: 149/78, Pulse Oximetry: 94, Weight: 112.000 Physical Exam General: Awake and Alert, no acute distress. HEENT: Conjunctiva pink, Sclera clear, Mucus Membranes moist. Neck: Supple without masses and tenderness. Resp: Unlabored. Lungs clear to auscultation bilaterally. Heart: Regular Rate and rhythm, normal S1 and S2 without murmur, rub or gallop. Abdomen: Soft and non tender no organomegaly Extremities: No cyanosis,clubbing or edema. Skin: Warm and Dry. Procedures Additional Procedures Procedure Note We did perform [place]-Hallpike maneuver today. Patient did not tolerate the 1st attempt with head turned 45 to his left side. Patient was able to go down at that time but then had significant or severe episode of vertigo and the came up immediately. Patient was then dosed with Ativan 2 mg by mouth and [place]-Hallpike was again attempted for a 2nd time in his time patient tolerated much better and reported relief of symptoms after treatment. Progress Results/Orders Results/Orders Completed Orders - HARJIT STEARNS Lorazepam Tablet (Ativan Tablet) (10/28/24 19:04) Medications Received in ER Medications (Trade) Dose Ordered Sig/Rayshawn Route PRN Reason Start Time Stop Time Status Last Admin Dose Admin (Ativan tablet) 2 mg ONCE STAT PO 10/28/24 19:04 10/28/24 19:07 DC 10/28/24 19:16 2 MG Vital Signs 10/28/24 17:44 Temp 98.1 Pulse 78 Resp 15 B/P (MAP) 149/78 Pulse Ox 94 Laboratory Tests Test 10/28/24 18:46 Glucometer 283 H Medical Decision Making Findings Patient is seen today with complaints of vertigo like symptoms with the room spinning for the last few days. Patient was seen recently for similar issue and was prescribed meclizine and was dosed with Ativan in the ER and they state that helps for a couple days but now patient states his symptoms have returned and he is unable to work. Patient denies any current nausea or vomiting. He states symptoms are worse when he moves his head from [id number]. He has no other concern or complaint of the same. Shared decision-making utilized today. We did perform Caitlin-Hallpike maneuver today. Patient did not tolerate the 1st attempt with head turned 45 to his left side. Patient was able to go down at that time but then had significant or severe episode of vertigo and the came up immediately. Patient was then dosed with Ativan 2 mg by mouth and [place]-Hallpike was again attempted for a 2nd time in his time patient tolerated much better and reported relief of symptoms after treatment. Patient will follow up with primary care for referral to ENT spe cialist if needed. Return to ED with any worsening, concerning or changing symptoms. Departure Disposition: 01 HOME / SELF CARE / HOMELESS Impression: Primary Impression: Vertigo Condition: Improved Discharge Instructions: Vertigo Additional Instructions: Shared decision-making utilized today. We did perform [place]-Hallpike maneuver today. Patient did not tolerate the 1st attempt with head turned 45 to his left side. Patient was able to go down at that time but then had significant or severe episode of vertigo and the came up immediately. Patient was then dosed with Ativan 2 mg by mouth and [place]-Hallpike was again attempted for a 2nd time in his time patient tolerated much better and reported relief of symptoms after treatment. Patient will follow up with primary care for referral to ENT specialist if needed. Return to ED with any worsening, concerning or changing symptoms. Referrals: NO PRIMARY CARE PROVIDER (PCP) Signature Scribe Signature: No scribe Attestation: No scribe HARJIT STEARNS Oct 28, 2024 19:09
[2024-10-28] MEDS: LORazepam 1 MG tablet PO STA (19:16)
[2024-10-28 20:42] VITALS: BP 142/74; PULSE 74; RESP 16; TEMP 98.6; O2SAT 99
== END 2024-10-28 20:43 | disposition home or self-care (01) ==
LOC: ER 17:40
DX: R42 Dizziness and giddiness (principal); E11.9 Type 2 diabetes mellitus without complications
CPT/HCPCS: 82948; 99283